=== PATIENT | female | born 1955 | race Caucasian/White ===

== ENCOUNTER → 2016-08-16 | Outpatient (CLI) | payer BC ==
[~2016-08-16] MED LIST: AMIT50TA3 PO; ASPI-860 PO; BMT1T PO; DOXY100C2 PO; ISOS40TA10 PO; LEVO200T6 PO; LSRT50T PO; METF850T2 PO; METO-272 PO; OMEP20TA PO; OMG1KC PO; SPRN25T PO; UBID100C17 PO; ZLP10T PO; [UNRECOGNIZED DRUG - CODE] PO
--- NOTE | 2016-08-17 19:14 | Diagnostic Imaging Report ---
INDICATION: Digital screening mammography bilateral with CAD The current study was also evaluated with a Computer Aided Detection (CAD) system. Comparison is made to previous studies of 07/13/2015 and 07/11/2014. There is mild to moderate parenchymal density within both breasts. Benign calcifications are again noted without evidence of new dominant mass or suspicious clustered microcalcification. Overall, there has been no adverse change. IMPRESSION: Benign findings. Continued physical examination and annual mammographic followup are recommended. ACR BI-RADS Category 2: Benign findings. Result letter will be mailed to the patient. Note: At least 10% of breast cancer is not imaged by mammography. Dictated by: Dictated on workstation # [id number]
== END ==
LOC: RAD 11:19
PROVIDERS: ATTEND Family Medicine
DX: Z12.31 Encounter for screening mammogram for malignant neoplasm of breast (principal)